=== PATIENT | female | born 1945 | race Caucasian/White ===

== ENCOUNTER 2016-08-26 11:17 | Outpatient (CLI) | END 2016-08-26 11:18 | disposition home or self-care (01) ==

== ENCOUNTER 2017-01-03 09:14 | Outpatient (CLI) | payer MEDICARE, OTHER | END 2017-01-03 09:15 | disposition home or self-care (01) | DX: E11.9 Type 2 diabetes mellitus without complications (principal); I10 Essential (primary) hypertension; M17.9 Osteoarthritis of knee, unspecified; E78.2 Mixed hyperlipidemia ==

== ENCOUNTER 2018-07-10 11:20 | Emergency (ER) | payer MEDICARE, OTHER ==
--- NOTE | 2018-07-10 12:27 | ED Physician Documentation ---
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 But without specific injury she has had right flank pain for the last 6 weeks that is much worse with bending and twisting. She has a lot of pain when she tries to wipe herself. There is no associated weight loss. She has not noted any urinary complaints. She has not tried anything specific for it) Review of Systems Constitutional: denies: Fever, Chills Ears: denies: Loss of hearing, Ear pain Nose: denies: Rhinorrhea / runny nose, Congestion Throat: denies: Sore throat Cardiac: denies: Chest pain / pressure, Palpitations Respiratory: denies: Dyspnea, Cough PD PAST MEDICAL HISTORY - Past Medical History Cardiovascular: Hypertension, High cholesterol Endocrine/Autoimmune: Type 2 diabetes GI: GERD Psych: Depression, Anxiety Musculoskeletal: Osteoarthritis Derm: Herpes zoster - Past Surgical History General: Cholecystectomy, Appendectomy Ortho: Arthroscopic surgery, Other HEENT: Cataracts - Present Medications Home Medications: Ambulatory Orders Medication Instructions Recorded Confirmed Acyclovir 400 mg PO DAILY 05/20/15 11/15/16 Furosemide [Lasix] 20 mg PO DAILY 05/20/15 11/15/16 Omeprazole [Prilosec] 20 mg PO DAILY 05/20/15 11/15/16 Oxycodone HCl/Acetaminophen 1 each PO BID PRN 05/21/15 11/15/16 [Percocet 10-325 mg Tablet] Potassium Chloride 1 tab PO DAILY 12/26/15 11/15/16 Losartan [Cozaar] 50 mg PO DAILY 04/02/16 11/15/16 metFORMIN [Glucophage] 500 mg PO BIDWM 11/15/16 11/15/16 Atorvastatin [Lipitor] 07/10/18 C,E,Zinc,Copper /Ecxtt1g/Lut 07/10/18 [Ocuvite Adult 50 Plus Softgel] Cyclobenzaprine [Flexeril] 10 mg PO TID PRN #20 tablet 07/10/18 Diclofenac Potassium [Cambia] 07/10/18 Venlafaxine ER [Effexor ER] 75 mg PO DAILY 07/10/18 07/10/18 - Allergies Allergies/Adverse Reactions: Allergies Allergy/AdvReac Type Severity Reaction Status Date / Time No Known Drug Allergies Allergy Verified 07/10/18 11:27 - Social History Does the pt smoke?: No Smoking Status: Never smoker Does the pt drink ETOH?: No Does the pt have substance abuse?: No - Immunizations Immunizations are current?: No Immunizations: TDAP >10years/unknown PD ED PE NORMAL - Vitals Vital signs reviewed: Yes - General General: Alert and oriented X 3, No acute distress - Neck Neck: Supple, no meningeal sign, No bony TTP - Cardiac Cardiac: RRR, No murmur - Respiratory Respiratory: No respiratory distress, Clear bilaterally - Abdomen Abdomen: Normal bowel sounds, Soft, Non tender - Back Back: Other (She is TTP R flank, no rash) - Extremities Extremities: No edema, No calf tenderness / cord - Neuro Neuro: Alert and oriented X 3, Normal speech - Psych Psych: Normal mood, Normal affect Results - Vitals Vitals: Vital Signs - 24 hr 07/10/18 07/10/18 11:23 13:38 Temperature 36.4 C L Heart Rate 92 Respiratory 16 Rate Blood Pressure 183/107 H 144/99 H O2 Saturation 98 Oxygen O2 Source Room air - Labs Labs: Laboratory Tests 07/10/18 07/10/18 07/10/18 12:55 13:35 13:35 WBC 8.8 RBC 4.59 Hgb 14.7 Hct 43.0 MCV 93.7 MCH 32.0 H MCHC 34.1 RDW 13.0 Plt Count 268 MPV 7.1 L Neut # (Auto) 5.8 Lymph # (Auto) 2.3 [place] # (Auto) 0.5 Eos # (Auto) 0.1 Baso # (Auto) 0.2 H Absolute Nucleated RBC 0.00 Nucleated RBC % 0.0 Sodium 138 Potassium 3.5 Chloride 100 L Carbon Dioxide 28 Anion Gap 10.0 BUN 15 Creatinine 0.7 Estimated GFR (MDRD) 82 L Glucose 170 H Calcium 8.9 Total Bilirubin 1.3 H AST 26 ALT 23 Alkaline Phosphatase 76 Total Protein 6.7 Albumin 4.1 Globulin 2.6 Albumin/Globulin Ratio 1.6 Lipase 34 Urine Color YELLOW Urine Clarity CLEAR Urine pH 6.5 Ur Specific [place] 1.010 Urine Protein NEGATIVE Urine Glucose (UA) NEGATIVE Urine Ketones NEGATIVE Urine Occult Blood NEGATIVE Urine Nitrite NEGATIVE Urine Bilirubin NEGATIVE Urine Urobilinogen 0.2 (NORMAL) Ur Leukocyte Esterase NEGATIVE Ur Microscopic Review NOT INDICATED Urine Culture Comments NOT INDICATED - Rads (name of study) CT A/P Radiology: EMP read contemporaneously (Advanced arthritic changes of the lumbar spine without intra-abdominal abnormality.) PD MEDICAL DECISION MAKING - ED course ED course: 72-year-old woman with right flank pain that somewhat subacute at this point. She presents to the emergency department as her physician is out of town. Seems mostly muscular but given exam advanced age labs and CT were done showing arthritic changes of the lumbar spine without intra-abdominal abnormality. Departure - Departure Disposition: Home, Self Care Clinical Impression: Flank pain Back pain Qualifiers: Back pain location: low back pain Chronicity: acute Back pain laterality: right Sciatica presence: without sciatica Qualified Code(s): M54.5 - Low back pain Condition: Good Record reviewed to determine appropriate education?: Yes Instructions: ED Neck Back Pain General Prescriptions: Cyclobenzaprine [Flexeril] 10 mg PO TID PRN #20 tablet PRN Reason: Spasms Comments: Call your doctor to arrange a follow-up appointment, make the next available appointment. In the interim, return anytime if worse or if new symptoms develop. Your blood pressure was elevated today on check into the emergency department. This does not mean that you have hypertension, it is a common phenomenon to come to the emergency department and have elevated blood pressure. I recommend that you see your primary care physician within the week to have it rechecked when you are feeling better.
[2018-07-10] MEDS ORDERED: IOPAMIDOL-300 100 ML VIAL ONE (12:54)
[2018-07-10 13:26] LABS: BILIRUBIN,URINE NEGATIVE (NEGATIVE); GLUCOSE, URINE (UA) NEGATIVE (NEGATIVE); KETONES,URINE (UA) NEGATIVE (NEGATIVE); LEUKOCYTE ESTERASE, URINE NEGATIVE (NEGATIVE); NITRITE,URINE NEGATIVE (NEGATIVE); OCCULT BLOOD,URINE NEGATIVE (NEGATIVE); PH,URINE 6.5 PH (5.0-7.5); PROTEIN,URINE NEGATIVE (NEGATIVE); UROBILINOGEN,URINE 0.2 (NORMAL) E.U./dL (NORMAL)
[2018-07-10 13:28] LABS: CLARITY,URINE CLEAR (CLEAR)
[2018-07-10 13:39] VITALS: BP 144/99
[2018-07-10 13:45] LABS: BASOPHILS # (AUTO) 0.2 10^3/uL (0.0-0.1); BASOPHILS % (AUTO) 2.4 %; EOSINOPHILS # (AUTO) 0.1 10^3/uL (0.0-0.7); EOSINOPHILS % (AUTO) 0.9 %; HGB - HEMOGLOBIN 14.7 g/dL (12.0-16.0); LYMPHOCYTES # (AUTO) 2.3 10^3/uL (1.5-3.5); LYMPHOCYTES % (AUTO) 25.8 %; MEAN CORPUSCULAR HGB CONC 34.1 g/dL (32.0-36.0); MEAN CORPUSCULAR VOLUME 93.7 fL (81.0-99.0); MEAN PLATELET VOLUME 7.1 fL (7.9-10.8); MONOCYTES # (AUTO) 0.5 10^3/uL (0.0-1.0); MONOCYTES % (AUTO) 5.2 %; NEUTROPHILS # (AUTO) 5.8 10^3/uL (1.5-6.6); NEUTROPHILS % (AUTO) 65.7 %; PLT - PLATELET COUNT 268 10^3/uL (130-450); RED BLOOD COUNT 4.59 10^6/uL (4.20-5.40); WHITE BLOOD COUNT 8.8 x10^3/uL (4.8-10.8)
[2018-07-10 14:05] LABS: ALBUMIN 4.1 g/dL (3.2-5.5); ALBUMIN/GLOBULIN RATIO 1.6 (1.0-2.2); BILIRUBIN,TOTAL 1.3 mg/dL (0.2-1.0); CALCIUM 8.9 mg/dL (8.5-10.3); CREATININE 0.7 mg/dL (0.4-1.0); TOTAL PROTEIN 6.7 g/dL (6.7-8.2)
[2018-07-10] MEDS ORDERED: IOPAMIDOL-300 100 ML VIAL IVP ONE (14:39)
--- NOTE | 2018-07-10 14:51 | CT Report ---
Reason: IV only, R flank pain Procedure Date: 07/10/2018 Accession Number: [id number] / [id number] Procedure: CT - Abdomen/Pelvis W/ CPT Code: FULL RESULT: EXAM: CT ABDOMEN AND PELVIS EXAM DATE: 07/10/2018 02:37 PM. CLINICAL HISTORY: Right flank pain. COMPARISONS: None. TECHNIQUE: Routine helical CT imaging was performed through the abdomen and pelvis. IV contrast: 100 ML ISOVUE 300. Enteric contrast: No. Reconstructions: Coronal and sagittal. In accordance with CT protocol optimization, one or more of the following dose reduction techniques were utilized for this exam: automated exposure control, adjustment of mA and/or KV based on patient size, or use of iterative reconstructive technique. FINDINGS: Lung Bases: Unremarkable. Liver: Normal. No masses. Gallbladder/Bile Ducts: Status post cholecystectomy with expected prominence of the extrahepatic biliary system. Spleen: Normal. Pancreas: Normal. Adrenal Glands: Normal. Kidneys: Normal. No masses or hydronephrosis. Peritoneal Cavity/Bowel: Diverticulosis without diverticulitis. No free fluid, free air or adenopathy. No masses or acute inflammatory process. The appendix is well visualized and normal. Pelvic Organs: Normal. The bladder and visualized pelvic organs are within normal limits. Vasculature: Atherosclerosis without aneurysm. Bones: Multilevel degenerative changes including 5 mm of anterolisthesis of L4 on L5 and complete loss of disk space height at multiple lumbar levels. There is degenerative dextroconvex lumbar scoliosis centered about L2 with a mild compensatory levoconvex scoliosis about the thoracolumbar spinal region. Other: None. IMPRESSION: Advanced degenerative changes of the lumbar spine including scoliosis and grade 1 listhesis as described. RADIA
== END 2018-07-10 15:24 | disposition home or self-care (01) ==
LOC: ED 11:20
DX: R10.9 Unspecified abdominal pain (principal); M54.5 Low back pain; E11.9 Type 2 diabetes mellitus without complications; I10 Essential (primary) hypertension; Z79.84 Long term (current) use of oral hypoglycemic drugs
CPT/HCPCS: 36415; 74177; 80053; 81003; 83690; 85025; 99283; Q9967; 81001; 87086

== ENCOUNTER 2019-04-21 20:23 | Outpatient (CLI) | payer MEDICARE, OTHER | END 2019-04-21 20:24 | disposition EMS.NT | LOC: EMS 20:23 | PROVIDERS: ATTEND Surgery | DX: Z03.89 Encounter for observation for other suspected diseases and conditions ruled out (principal) ==

== ENCOUNTER 2019-10-09 08:43 | Outpatient (CLI) | payer MEDICARE, OTHER ==
[2019-10-09 09:34] LABS: HB2 TOTAL 13.5 g/dL; HEMOGLOBIN A1C 0.79 g/dL; HEMOGLOBIN A1C % 7.5 % (4.6-6.2)
== END 2019-10-09 08:44 | disposition home or self-care (01) ==
LOC: LAB 08:43
PROVIDERS: ATTEND Podiatrist Foot & Ankle Surgery
DX: M62.81 Muscle weakness (generalized) (principal); M12.871 Other specific arthropathies, not elsewhere classified, right ankle and foot; Z96.661 Presence of right artificial ankle joint; T84.098D Other mechanical complication of other internal joint prosthesis, subsequent encounter
CPT/HCPCS: 36415; 82985; 83036

== ENCOUNTER 2020-01-07 07:40 | Outpatient (CLI) | payer MEDICARE, OTHER ==
[2020-01-07 08:10] LABS: CALCIUM 9.3 mg/dL (8.5-10.3); CREATININE 0.7 mg/dL (0.4-1.0)
[2020-01-07 08:19] LABS: HB2 TOTAL 15.2 g/dL; HEMOGLOBIN A1C 0.93 g/dL; HEMOGLOBIN A1C % 7.7 % (4.6-6.2)
== END 2020-01-07 07:41 | disposition home or self-care (01) ==
LOC: LAB 07:40
PROVIDERS: ATTEND Family Medicine
DX: E11.65 Type 2 diabetes mellitus with hyperglycemia (principal)
CPT/HCPCS: 36415; 80048; 83036

== ENCOUNTER 2021-09-16 12:00 | Outpatient (CLI) | payer MEDICARE, OTHER ==
--- NOTE | 2021-09-16 16:38 | XRAY Report ---
PROCEDURE: Foot 3 View RT INDICATIONS: PAIN LATERAL COLUMN R FOOT TECHNIQUE: 3 views of the foot were acquired. COMPARISON: None FINDINGS: Bones: Postsurgical changes compatible with right tibiotalar joint arthrodesis. Subtalar joint and mi dfoot osteoarthritis. Plantar calcaneal bone spur. Anterior talus bone spur. No fractures or dislocat ions. No suspicious bony lesions. Soft tissues: No tibiotalar joint effusion. Achilles tendon appears normal. IMPRESSION: No fracture. No acute osseous lesion. If there persistent symptoms or continued clinical concern for pathology, then repeat plain film radiographs (7-10 days) or advanced imaging (CT, MR, bone scan) lacey uld be considered for further evaluation. Reviewed by: Mimi Stout MD, PhD on 09/16/2021 4:37 PM PST Approved by: Mimi Stout MD, PhD on 09/16/2021 4:37 PM PST Station ID: [id number]
== END 2021-09-16 12:01 | disposition home or self-care (01) ==
LOC: DI 12:00
PROVIDERS: ATTEND Podiatrist
DX: M79.671 Pain in right foot (principal)

== ENCOUNTER 2022-05-27 11:15 | Outpatient (CLI) | payer MEDICARE, OTHER ==
[2022-05-27 11:39] LABS: BASOPHILS % (AUTO) 0.5 %; EOSINOPHILS % (AUTO) 0.4 %; HCT - HEMATOCRIT 44.1 % (37.0-47.0); LYMPHOCYTES # (AUTO) 1.7 10^3/uL (1.5-3.5); LYMPHOCYTES % (AUTO) 23.7 %; MEAN CORPUSCULAR HEMOGLOBIN 27.9 pg (27.0-31.0); MEAN CORPUSCULAR HGB CONC 31.7 g/dL (32.0-36.0); MEAN PLATELET VOLUME 8.8 fL (7.9-10.8); MONOCYTES # (AUTO) 0.4 10^3/uL (0.0-1.0); MONOCYTES % (AUTO) 5.9 %; NEUTROPHILS # (AUTO) 5.1 10^3/uL (1.5-6.6); NEUTROPHILS % (AUTO) 69.4 %; PLT - PLATELET COUNT 303 10^3/uL (130-450); RED BLOOD COUNT 5.01 10^6/uL (4.20-5.40); RED CELL DISTRIBUTION WIDTH 15.2 % (12.0-15.0); WHITE BLOOD COUNT 7.3 x10^3/uL (4.8-10.8)
[2022-05-27 11:51] LABS: CREATININE,URINE 43.9 mg/dL; MICROALBUM/CREATININE RATIO,UR 25.1 ug/mg (<30.0); MICROALBUMIN,URINE 1.1 mg/dL (0-300.0)
[2022-05-27 11:59] LABS: ALBUMIN 3.7 g/dL (3.2-5.5); ALBUMIN/GLOBULIN RATIO 1.2 (1.0-2.2); ALKALINE PHOSPHATASE 74 IU/L (42-121); ALT ALANINE AMINOTRANSFERASE 17 IU/L (10-60); AST ASPARTATE AMINOTRANSFERASE 18 IU/L (10-42); BILIRUBIN,TOTAL 0.7 mg/dL (0.2-1.0); BUN - BLOOD UREA NITROGEN 14 mg/dL (6-20); CALCIUM 8.9 mg/dL (8.5-10.3); CARBON DIOXIDE - CO2 29 mmol/L (21-32); CHLORIDE 99 mmol/L (101-111); CHOL/HDL RATIO 2.4 (<4.4); CHOLESTEROL 143 mg/dL; CREATININE 0.6 mg/dL (0.4-1.0); GFR - MDRD 97 (>89); GLUCOSE 203 mg/dL (70-100); HDL CHOLESTEROL 60 mg/dL; LDL CHOLESTEROL,CALCULATED 69 mg/dL; LDL/HDL RATIO 1.2 (<4.4); POTASSIUM 3.5 mmol/L (3.5-5.0); SODIUM 136 mmol/L (135-145); TOTAL PROTEIN 6.9 g/dL (6.7-8.2); TRIGLYCERIDES 69 mg/dL; VLDL CHOLESTEROL 14 mg/dL
== END 2022-05-27 11:16 | disposition home or self-care (01) ==
LOC: LAB 11:15
PROVIDERS: ATTEND Family Medicine
DX: E78.2 Mixed hyperlipidemia (principal); E11.65 Type 2 diabetes mellitus with hyperglycemia; Z79.4 Long term (current) use of insulin
CPT/HCPCS: 36415; 80053; 80061; 82043; 82570; 83721; 85025

== ENCOUNTER 2022-11-08 19:22 | Outpatient (CLI) | payer MEDICARE, OTHER ==
--- NOTE | 2022-11-09 09:32 | XRAY Report ---
PROCEDURE: Chest 2 View X-Ray INDICATIONS: BRONCHITIS,ACUTE TECHNIQUE: 2 views of the chest were acquired. COMPARISON: None. FINDINGS: Surgical changes and devices: None. Lungs and pleura: No pleural effusions or pneumothorax. Lungs are clear. Mediastinum: Mediastinal contours are normal. Heart size is normal. Bones and chest wall: No suspicious bony abnormalities. Soft tissues appear unremarkable. IMPRESSION: No acute cardiopulmonary process. Reviewed by: Rene Gomez on 11/09/2022 9:31 AM PDT Approved by: Rene Gomez on 11/09/2022 9:31 AM PDT Station ID: [id number]
== END 2022-11-08 19:23 | disposition home or self-care (01) ==
LOC: DI 19:22
PROVIDERS: ATTEND Family Medicine
DX: J20.9 Acute bronchitis, unspecified (principal)

== ENCOUNTER 2023-01-07 17:29 | Outpatient (CLI) | payer MEDICARE, OTHER | END 2023-01-07 17:30 | disposition EMS.NT | LOC: EMS 17:29 | DX: M25.531 Pain in right wrist (principal); V53.5XXA Driver of pick-up truck or van injured in collision with car, pick-up truck or van in traffic accident, initial encounter; Y92.413 State road as the place of occurrence of the external cause ==

== ENCOUNTER 2023-01-17 11:30 | Emergency (ER) | payer MEDICARE, OTHER ==
[2023-01-17 11:43] VITALS: BP 139/62
--- NOTE | 2023-01-17 12:54 | CT Report ---
PROCEDURE: HEAD WO INDICATIONS: closed head injury, vomiting TECHNIQUE: Noncontrast 4.5 mm thick angled axial sections acquired from the foramen magnum to the vertex. For r adiation dose reduction, the following was used: automated exposure control, adjustment of mA and/or kV according to patient size. COMPARISON: None. FINDINGS: Image quality: Excellent. CSF spaces: Basal cisterns are patent. No extra-axial fluid collections. Ventricles are normal in size and shape. Brain: No midline shift. No intracranial masses or hemorrhage. Mcbride-white matter interface is norm al. Age-appropriate mild supra cortical volume loss and white matter hypodensity. Skull and face: Small left frontal subcutaneous soft tissue swelling. No debris. No underlying fractu re. Sinuses: Visualized sinuses and mastoids are clear. IMPRESSION: 1. No CT evidence of acute intracranial trauma. 2. Small left frontal subcutaneous contusion without underlying fracture. 3. Age-appropriate exam. Reviewed by: Laila Lazo MD on 01/17/2023 11:52 AM [facility] Approved by: Laila Lazo MD on 01/17/2023 11:52 AM [facility] Station ID: [id number]
--- NOTE | 2023-01-17 12:56 | ED Physician Documentation ---
History of Present Illness - Stated complaint Stated Complaint: HEAD INJURY - Chief complaint Chief Complaint: Trauma Hd/Nk - History obtained from History obtained from: Patient - History of Present Illness Timing: Last night Pain level max: 5 Pain level now: 0 - Additonal information Additional information: Patient is a 77-year-old female who presents to the emergency department after a ground-level fall last night, struck her head on concrete. No loss of consciousness. Emesis x1, but she states is not uncommon for her to vomit from her diabetes. She states she usually vomits once a week. She is not on blood thinners. Currently feels normal. No neck or back pain. Nothing makes it better or worse. No seizure activity. No altered mental status. Review of Systems Constitutional: denies: Fever, Chills Cardiac: denies: Chest pain / pressure, Palpitations Respiratory: denies: Cough GI: reports: Vomiting (x1). 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 HEENT: Macular degeneration Psych: Depression, Anxiety Musculoskeletal: Osteoarthritis Derm: Herpes zoster - Past Surgical History General: Cholecystectomy, Appendectomy Ortho: Arthroscopic surgery, Other HEENT: Cataracts - Present Medications Home Medications: Ambulatory Orders Medication Instructions Recorded Confirmed Acyclovir 400 mg PO DAILY 05/20/15 11/15/16 Furosemide [Lasix] 20 mg PO DAILY 05/20/15 11/15/16 Oxycodone HCl/Acetaminophen 1 each PO BID PRN 05/21/15 11/15/16 [Percocet 10-325 mg Tablet] Potassium Chloride 1 tab PO DAILY 12/26/15 11/15/16 Losartan [Cozaar] 50 mg PO DAILY 04/02/16 11/15/16 metFORMIN [Glucophage] 500 mg PO BIDWM 11/15/16 11/15/16 Venlafaxine ER [Effexor ER] 75 mg PO DAILY 07/10/18 07/10/18 - Allergies Allergies/Adverse Reactions: Allergies Allergy/AdvReac Type Severity Reaction Status Date / Time No Known Drug Allergies Allergy Verified 07/10/18 11:27 - Social History Does the pt smoke?: No Smoking Status: Never smoker Does the pt drink ETOH?: Yes Does the pt have substance abuse?: No - Immunizations Immunizations are current?: No Immunizations: TDAP >10years/unknown PD ED PE NORMAL - Vitals Vital signs reviewed: Yes - General General: Alert and oriented X 3, No acute distress, Well developed/nourished - HEENT HEENT: PERRL, EOMI, Ears normal, Moist mucous membranes, Pharynx benign, Dentition benign, Other (Left forehead scalp hematoma. Slight abrasion. No palpable skull fractures. 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, No motor deficit, No sensory deficit, Normal speech Eye Opening: Spontaneous Motor: Obeys Commands Verbal: Oriented GCS Score: 15 - Psych Psych: Normal mood, Normal affect Results - Vitals Vitals: Vital Signs - 24 hr 01/17/23 11:36 Temperature 35.7 C L Heart Rate 57 L Respiratory 18 Rate Blood Pressure 139/62 H O2 Saturation 99 Oxygen O2 Source Room air - Labs Labs: Laboratory Tests 01/17/23 11:54 POC Whole Bld Glucose 331 H - Rads (name of study) head CT Relevant Findings:: Final report received, See rad report PD Medical Decision Making - ED course Complexity details: reviewed results, re-evaluated patient, considered differential, d/w patient ED course: No acute findings on head CT. Patient is GCS 15. Head injury instructions given at bedside. Patient counseled regarding signs and symptoms for which I believe and urgent re-evaluation would be necessary. Patient with good understanding of and agreement to plan and is comfortable going home at this time This document was made in part using voice recognition software. While efforts are made to proofread this document, sound alike and grammatical errors may occur. Departure - Departure Disposition: 01 Home, Self Care Clinical Impression: Closed head injury Qualifiers: Encounter type: initial encounter Qualified Code(s): S09.90XA - Unspecified inj ury of head, initial encounter Condition: Good Instructions: ED Head Injury Closed Follow-Up: your,doctor [Other] - As Needed Comments: Please follow-up with your doctor as needed for further care. Your head CT does not show any acute abnormalities. There are no fractures or intracranial hemor rhages. Please return if you worsen.
== END 2023-01-17 14:57 | disposition home or self-care (01) ==
LOC: ED 11:30
DX: S09.90XA Unspecified injury of head, initial encounter (principal); W18.30XA Fall on same level, unspecified, initial encounter; I10 Essential (primary) hypertension; E11.9 Type 2 diabetes mellitus without complications; Z79.84 Long term (current) use of oral hypoglycemic drugs
CPT/HCPCS: 99283; 99284

== ENCOUNTER 2023-02-10 12:13 | Outpatient (CLI) | payer MEDICARE, OTHER ==
[2023-02-10 12:36] LABS: BASOPHILS # (AUTO) 0.1 10^3/uL (0.0-0.1); BASOPHILS % (AUTO) 0.7 %; EOSINOPHILS % (AUTO) 0.4 %; HGB - HEMOGLOBIN 13.3 g/dL (12.0-16.0); LYMPHOCYTES # (AUTO) 1.5 10^3/uL (1.5-3.5); LYMPHOCYTES % (AUTO) 15.2 %; MEAN CORPUSCULAR HEMOGLOBIN 26.9 pg (27.0-31.0); MEAN CORPUSCULAR HGB CONC 30.9 g/dL (32.0-36.0); MEAN CORPUSCULAR VOLUME 86.9 fL (81.0-99.0); MEAN PLATELET VOLUME 9.5 fL (7.9-10.8); MONOCYTES # (AUTO) 0.5 10^3/uL (0.0-1.0); MONOCYTES % (AUTO) 5.3 %; NEUTROPHILS # (AUTO) 7.8 10^3/uL (1.5-6.6); NEUTROPHILS % (AUTO) 78.2 %; PLT - PLATELET COUNT 324 10^3/uL (130-450); RED BLOOD COUNT 4.95 10^6/uL (4.20-5.40); RED CELL DISTRIBUTION WIDTH 15.5 % (12.0-15.0); WHITE BLOOD COUNT 9.9 x10^3/uL (4.8-10.8)
[2023-02-10 12:37] LABS: BILIRUBIN,URINE NEGATIVE (NEGATIVE); GLUCOSE, URINE (UA) >=1000 mg/dL (NEGATIVE); KETONES,URINE (UA) NEGATIVE (NEGATIVE); LEUKOCYTE ESTERASE, URINE NEGATIVE (NEGATIVE); NITRITE,URINE POSITIVE (NEGATIVE); OCCULT BLOOD,URINE NEGATIVE (NEGATIVE); PROTEIN,URINE NEGATIVE (NEGATIVE); UROBILINOGEN,URINE 0.2 (NORMAL) E.U./dL (NORMAL)
[2023-02-10 12:44] LABS: ESTIMATED AVERAGE GLUCOSE 192 mg/dL (70-100); HEMOGLOBIN A1c% 8.3 % (4.27-6.07)
[2023-02-10 12:47] LABS: BACTERIA,URINE Many /HPF (None Seen); CLARITY,URINE SL. CLOUDY (CLEAR); RBC,URINE 0-5 /HPF (0-5); SQUAMOUS EPITHELIAL CELL,UR FEW Squamous (<= Few)
[2023-02-10 12:51] LABS: ALBUMIN 3.7 g/dL (3.2-5.5); ALBUMIN/GLOBULIN RATIO 1.2 (1.0-2.2); ALKALINE PHOSPHATASE 62 IU/L (42-121); ALT ALANINE AMINOTRANSFERASE 15 IU/L (10-60); AST ASPARTATE AMINOTRANSFERASE 19 IU/L (10-42); BILIRUBIN,TOTAL 0.9 mg/dL (0.2-1.0); BUN - BLOOD UREA NITROGEN 14 mg/dL (6-20); CALCIUM 8.8 mg/dL (8.5-10.3); CARBON DIOXIDE - CO2 27 mmol/L (21-32); CHLORIDE 107 mmol/L (101-111); CHOL/HDL RATIO 2.6 (<4.4); CHOLESTEROL 123 mg/dL; CREATININE 0.7 mg/dL (0.4-1.0); GFR - MDRD 81 (>89); GLUCOSE 174 mg/dL (70-100); HDL CHOLESTEROL 47 mg/dL; LDL CHOLESTEROL,CALCULATED 59 mg/dL; LDL/HDL RATIO 1.3 (<4.4); POTASSIUM 3.8 mmol/L (3.5-5.0); SODIUM 140 mmol/L (135-145); TOTAL PROTEIN 6.8 g/dL (6.7-8.2); TRIGLYCERIDES 87 mg/dL; VLDL CHOLESTEROL 17 mg/dL
== END 2023-02-10 12:14 | disposition home or self-care (01) ==
LOC: LAB 12:13
PROVIDERS: ATTEND Family Medicine
DX: K52.9 Noninfective gastroenteritis and colitis, unspecified (principal); M81.0 Age-related osteoporosis without current pathological fracture; E78.2 Mixed hyperlipidemia; E11.65 Type 2 diabetes mellitus with hyperglycemia; Z79.4 Long term (current) use of insulin
CPT/HCPCS: 36415; 80053; 80061; 81001; 82306; 83036; 83721; 85025; 87077; 87086; 87181

== ENCOUNTER 2023-10-07 15:19 | Emergency (ER) | payer MEDICARE, OTHER ==
[2023-10-07 15:47] LABS: BILIRUBIN,URINE NEGATIVE (NEGATIVE); GLUCOSE, URINE (UA) >=1000 mg/dL (NEGATIVE); KETONES,URINE (UA) NEGATIVE (NEGATIVE); LEUKOCYTE ESTERASE, URINE NEGATIVE (NEGATIVE); NITRITE,URINE NEGATIVE (NEGATIVE); OCCULT BLOOD,URINE NEGATIVE (NEGATIVE); PH,URINE 7.5 PH (5.0-7.5); PROTEIN,URINE NEGATIVE (NEGATIVE); UROBILINOGEN,URINE 0.2 (NORMAL) E.U./dL (NORMAL)
[2023-10-07 15:48] LABS: CLARITY,URINE CLEAR (CLEAR)
--- NOTE | 2023-10-07 16:03 | ED Physician Documentation ---
History of Present Illness - Stated complaint Stated Complaint: DIZZY, - Chief complaint Chief Complaint: General - History obtained from History obtained from: Patient - Additonal information Additional information: 78-year-old woman with history of diabetes on metformin and insulin, macular degeneration who presents for evaluation of dizziness. She had a recent UTI and finished antibiotics 2 days ago. Not sure if that is related to the current issue. Today around noon she developed disequilibrium and vertigo with nausea but no vomiting. There is no headache per se but she feels a little congested at the vertex of her scalp. 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 HEENT: Macular degeneration Psych: Depression, Anxiety Musculoskeletal: Osteoarthritis Derm: Herpes zoster - Past Surgical History Past Surgical History: Yes General: Cholecystectomy, Appendectomy Ortho: Arthroscopic surgery, Other HEENT: Cataracts - Present Medications Home Medications: Ambulatory Orders Medication Instructions Recorded Confirmed Acyclovir 400 mg PO DAILY 05/20/15 11/15/16 Furosemide [Lasix] 20 mg PO DAILY 05/20/15 10/07/23 Oxycodone HCl/Acetaminophen 1 each PO BID PRN 05/21/15 11/15/16 [Percocet 10-325 mg Tablet] Potassium Chloride 1 tab PO DAILY 12/26/15 10/07/23 Losartan [Cozaar] 50 mg PO DAILY 04/02/16 10/07/23 metFORMIN [Glucophage] 500 mg PO BIDWM 11/15/16 10/07/23 Venlafaxine ER [Effexor ER] 75 mg PO DAILY 07/10/18 10/07/23 Meclizine HCl [Motion Sickness] 25 mg PO Q6H PRN #20 tablet 10/07/23 Ondansetron Odt [Zofran] 4 mg TL Q6H PRN #10 tablet 10/07/23 - Allergies Allergies/Adverse Reactions: Allergies Allergy/AdvReac Type Severity Reaction Status Date / Time No Known Drug Allergies Allergy Verified 10/07/23 15:34 - Social History Does the pt smoke?: No Smoking Status: Never smoker Does the pt drink ETOH?: Yes Does the pt have substance abuse?: No - Immunizations Immunizations are current?: No Immunizations: TDAP >10years/unknown PD ED PE NORMAL - Vitals Vital signs reviewed: Yes - General General: Alert and oriented X 3, No acute distress - HEENT HEENT: PERRL, EOMI (No nystagmus) - Neck Neck: Supple, no meningeal sign, No bony TTP - Cardiac Cardiac: RRR, No murmur - Respiratory Respiratory: No respiratory distress, Clear bilaterally - Abdomen Abdomen: Normal bowel sounds, Soft, Non tender - Back Back: No CVA TTP, No spinal TTP - Derm Derm: Normal color, Warm and dry - Neuro Neuro: 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 She is a slow shuffling gait, but is able to walk.) Eye Opening: Spontaneous Motor: Obeys Commands Verbal: Oriented GCS Score: 15 Results - Vitals Vitals: Vital Signs - 24 hr 10/07/23 10/07/23 15:34 17:18 Temperature 36.8 C Heart Rate 85 69 Respiratory 16 16 Rate Blood Pressure 160/72 H 154/86 H O2 Saturation 97 98 Oxygen O2 Source Room air - EKG (time done) 1603 EKG releavant findings:: EKG personally interpreted by author of this note. Relevant findings are: Rate: Rate (enter#) (72) Rhythm: NSR (w pac) Tripp: Normal Intervals: Normal OK QRS: Normal Ischemia: Normal ST segments - Labs Labs: Laboratory Tests 10/07/23 10/07/23 10/07/23 15:32 16:07 16:07 WBC 7.0 RBC 5.31 Hgb 13.9 Hct 45.3 MCV 85.3 MCH 26.2 L MCHC 30.7 L RDW 17.0 H Plt Count 288 MPV 8.9 Neut # (Auto) 5.0 Lymph # (Auto) 1.3 L [place] # (Auto) 0.5 Eos # (Auto) 0.1 Baso # (Auto) 0.1 Absolute Nucleated RBC 0.00 Nucleated RBC % 0.0 Sodium 140 Potassium 3.5 Chloride 102 Carbon Dioxide 30 Anion Gap 8.0 BUN 15 Creatinine 0.6 Estimated GFR (MDRD) 97 Glucose 243 H POC Whole Bld Glucose Calcium 9.6 Total Bilirubin 0.7 AST 15 ALT 12 Alkaline Phosphatase 77 Total Protein 7.0 Albumin 4.1 Globulin 2.9 Albumin/Globulin Ratio 1.4 Lipase 25 Urine Color YELLOW Urine Clarity CLEAR Urine pH 7.5 Ur Specific [place] 1.010 Urine Protein NEGATIVE Urine Glucose (UA) >=1000 H Urine Ketones NEGATIVE Urine Occult Blood NEGATIVE Urine Nitrite NEGATIVE Urine Bilirubin NEGATIVE Urine Urobilinogen 0.2 (NORMAL) Ur Leukocyte Esterase NEGATIVE Ur Microscopic Review NOT INDICATED Urine Culture Comments NOT INDICATED 10/07/23 16:18 WBC RBC Hgb Hct MCV MCH MCHC RDW Plt Count MPV Neut # (Auto) Lymph # (Auto) [place] # (Auto) Eos # (Auto) Baso # (Auto) Absolute Nucleated RBC Nucleated RBC % Sodium Potassium Chloride Carbon Dioxide Anion Gap BUN Creatinine Estimated GFR (MDRD) Glucose POC Whole Bld Glucose 245 H Calcium Total Bilirubin AST ALT Alkaline Phosphatase Total Protein Albumin Globulin Albumin/Globulin Ratio Lipase Urine Color Urine Clarity Urine pH Ur Specific [place] Urine Protein Urine Glucose (UA) Urine Ketones Urine Occult Blood Urine Nitrite Urine Bilirubin Urine Urobilinogen Ur Leukocyte Esterase Ur Microscopic Review Urine Culture Comments - Rads (name of study) MRI of the brain showing age-appropriate volume loss and small vessel ischemic change without acute findings. Relevant Findings:: Final report received, EMP independent interpretation of test PD Medical Decision Making - ED course ED course: 78-year-old woman with vertigo. No obvious findings of either peripheral nor central vertigo on exam. As such MRI was done and with no findings of CVA or mass lesion. Otherwise she was worried about recurrent UTI. Her urinalysis had glucosuria, otherwise unremarkable. CMP showing glucose of 243 noting she is a diabetic, CBC unremarkable. Departure - Departure Disposition: 01 Home, Self Care Clinical Impression: Vertigo Condition: Good Record reviewed to determine appropriate education?: Yes Instructions: ED Vertigo Unspecified Prescriptions: Meclizine HCl [Motion Sickness] 25 mg PO Q6H PRN #20 tablet PRN Reason: Dizziness Ondansetron Odt [Zofran] 4 mg TL Q6H PRN #10 tablet PRN Reason: Nausea / Vomiting Comments: You were seen today for vertigo, the MRI ruled out anything serious going on. Medications will help with your dizziness. Call your doctor to arrange a follow-up appointment, make the next available appointment. In the interim, return anytime if worse or if new symptoms develop. Forms: PCP List
[2023-10-07 16:13] LABS: BASOPHILS # (AUTO) 0.1 10^3/uL (0.0-0.1); BASOPHILS % (AUTO) 0.7 %; EOSINOPHILS # (AUTO) 0.1 10^3/uL (0.0-0.7); EOSINOPHILS % (AUTO) 1.3 %; HCT - HEMATOCRIT 45.3 % (37.0-47.0); HGB - HEMOGLOBIN 13.9 g/dL (12.0-16.0); LYMPHOCYTES # (AUTO) 1.3 10^3/uL (1.5-3.5); LYMPHOCYTES % (AUTO) 19.1 %; MEAN CORPUSCULAR HEMOGLOBIN 26.2 pg (27.0-31.0); MEAN CORPUSCULAR HGB CONC 30.7 g/dL (32.0-36.0); MEAN CORPUSCULAR VOLUME 85.3 fL (81.0-99.0); MEAN PLATELET VOLUME 8.9 fL (7.9-10.8); MONOCYTES # (AUTO) 0.5 10^3/uL (0.0-1.0); NEUTROPHILS % (AUTO) 71.8 %; PLT - PLATELET COUNT 288 10^3/uL (130-450); RED BLOOD COUNT 5.31 10^6/uL (4.20-5.40)
[2023-10-07] MEDS: METOCLOPRAMIDE 10 MG/2 ML VIAL IVP STA (16:28)
[2023-10-07] MEDS: MECLIZINE 12.5 MG TABLET PO STA (16:29)
[2023-10-07 16:30] LABS: ALBUMIN 4.1 g/dL (3.2-5.5); ALBUMIN/GLOBULIN RATIO 1.4 (1.0-2.2); BILIRUBIN,TOTAL 0.7 mg/dL (0.2-1.0); CALCIUM 9.6 mg/dL (8.5-10.3); CREATININE 0.6 mg/dL (0.6-1.3); POTASSIUM 3.5 mmol/L (3.5-4.5)
--- NOTE | 2023-10-07 18:42 | MRI Report ---
PROCEDURE: Brain WO INDICATIONS: vertigo TECHNIQUE: Noncontrast axial T1 spin echo, axial T2 fast spin echo, sagittal and axial FLAIR, coronal T2 fast sp in echo, axial gradient echo, axial diffusion and ADC through the brain. COMPARISON: Correlation is made with brain MRI, 01/17/2023. FINDINGS: Image quality: Motion artifact is noted. CSF Spaces: Basal cisterns are patent. No extra-axial fluid collections. Ventricles are normal in size and shape. Brain: No intracranial masses or hemorrhage. Mcbride/white matter interface is normal. Brainstem appe ars normal. Diffusion-weighted images demonstrate no acute ischemic insult. No chronic ischemic ins ults. Normal intravascular flow voids are present. Skull and face: Calvarium has normal marrow signal. Orbits appear normal. Incidental note is made of bilateral lens replacements. Sinuses: Sinuses and mastoids are clear. IMPRESSION: No imaging explanation is found for the patient's presenting symptoms. No findings of acute or subacute infarction are seen. Age-appropriate brain parenchymal volume loss and chronic small vessel ischemic change can be seen. Reviewed by: Tung Locke MD on 10/07/2023 5:41 PM [place] Approved by: Tung Locke MD on 10/07/2023 5:41 PM [facility] Station ID: [id number]
[2023-10-07 19:27] VITALS: BP 152/86; O2SAT 96
== END 2023-10-07 19:20 | disposition home or self-care (01) ==
LOC: ED 15:19
DX: R42 Dizziness and giddiness (principal); I10 Essential (primary) hypertension; E11.9 Type 2 diabetes mellitus without complications; Z79.84 Long term (current) use of oral hypoglycemic drugs; Z79.4 Long term (current) use of insulin; E78.00 Pure hypercholesterolemia, unspecified; J45.909 Unspecified asthma, uncomplicated
CPT/HCPCS: 36415; 70551; 80053; 81003; 83690; 85025; 93005; 96374; 99283; 99284; A9270; J2765; 81001; 87086

== ENCOUNTER 2024-01-19 08:00 | Outpatient (CLI) | payer MEDICARE, OTHER | END 2024-01-19 08:01 | disposition home or self-care (01) | LOC: LAB 08:00 | PROVIDERS: ATTEND Registered Nurse | DX: E11.9 Type 2 diabetes mellitus without complications (principal) | CPT/HCPCS: 82962 ==